=== PATIENT | male | born 1950 | race Caucasian/White ===

== ENCOUNTER → 2019-10-19 10:21 | Outpatient (BNVA) | payer MEDICARE, OTHER, SELFPAY | PROVIDERS: Family Provider Internal Medicine; PCP Internal Medicine; Visit Provider Family Medicine | DX: R09.81 Nasal congestion (principal); R52 Pain, unspecified; J10.1 Influenza due to other identified influenza virus with other respiratory manifestations | CPT/HCPCS: 87804 ==

== ENCOUNTER 2020-07-03 14:35 | Emergency (ER) | payer MEDICARE, OTHER, SELFPAY ==
[2020-07-03] VITALS (8 sets, daily range): BP systolic 93–157; BP diastolic 53–88; PULSE 75–99; RESP 16–24; TEMP 37.7–38.8; O2SAT 91–96; BMI 35.3
--- NOTE | 2020-07-03 14:55 | XR_ITS ---
WS: [id number] PORTABLE CHEST HISTORY: sob COMPARISON: None available. Hyperinflated lungs. Scattered bilateral peripheral opacifications and increasing opacifications at t he lung bases. No pleural effusion or pneumothorax. Cardiac size: Normal. Mediastinum/Aorta: Normal mediastinum. Prior RIGHT rotator cuff repair. Prior anterior cervical fusion. XR/XR chest 1V portable [id number] IMPRESSION: Bilateral pulmonary opacifications. Consistent with pneumonia. Correlate for po ssible Covid 19.
--- NOTE | 2020-07-03 14:56 | ECG_ITS ---
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 Measurements Intervals [place] Rate: 99 P: 20 MD: 166 QRS: -26 QRSD: 90 T: 62 QT: 365 QTc: 470 Interpretive Statements SINUS RHYTHM POSSIBLE LEFT ATRIAL ENLARGEMENT [-0.1mV P WAVE IN V1/V2] BORDERLINE LEFT AXIS DEVIATION [QRS AXIS < -20] ST DEVIATION AND MODERATE T-WAVE ABNORMALITY, CONSIDER LATERAL ISCHEMIA [-0.1+ mV T WAVE IN I/aVL/V5/V6] No previous ECG available for comparison Electronically Signed On 07-03-2020 21:40:36 ROCK DUSTER by Glo Mccall M.D. [id number]
--- NOTE | 2020-07-03 14:57 | W.ED.COVID ---
Documented by User: MEGHANA Deal 07/04/20 07:25 HPI - COVID General: Chief Complaint: COVID symptoms Stated Complaint: COVID, SOB, CAN'T SLEEP, WEAK Time Seen by Provider: 07/03/20 14:55 Triage information: Has fever, cough or shortness of breath. Exposure to COVID + person last 14 days History of Present Illness: HPI Narrative: Patient is a 69-year-old male comes to the ED with shortness of breath and weakness. Denies any COPD, asthma, previous [place], A. fib or heart failure. Patient tested positive for COVID-19 on June 27. He says for the past couple days he is having trouble sleeping and says he has increased shortness of breath and chest pain on exertion. Chest pain with exertion has been going for the last 6 days. His chest pain and shortness of breath improves once he rests. He describes the chest pain is centrally located and feels like a burning pain. He currently rates his chest pain a 6 out of 10. He endorses having a fever, body aches, dry cough and nasal drainage and congestion. Patient has not taken any medication for his fevers today. COVID 19 common symptoms: positive fever(s), non-productive cough, dyspnea, fatigue, body aches and nasal congestion; negative chills, productive cough, headache(s), throat pain, nausea, vomiting or diarrhea COVID 19 other sytmptoms: positive chest pain COVID Results: No Data to Display Review of Systems Const: Reports: fever(s), body aches, change in appetite (decreased), fatigue and change in sleep pattern (poor sleep due to cough); Denies: chills Eyes: Denies: change in vision or eye discomfort ENMT: Reports: nasal discharge and nasal congestion; Denies: throat pain or odynophagia Card: Reports: chest pain; Denies: palpitations, edema, swelling of feet/ankles, dyspnea on exertion or orthopnea Resp: Reports: dyspnea and non-productive cough; Denies: productive cough GI: Denies: abdominal pain, nausea, vomiting, diarrhea, constipation or hematochezia : Denies: flank pain, difficulty urinating, dysuria or hematuria Musc: Denies: neck pain, back pain or extremity swelling Skin/Breast: Denies: rash or new lesions Neuro: Denies: headache(s), numbness in extremities or weakness in extremities PFSH ED PFSH: Social History Smoking and tobacco status: former smoker Physical Exam Const: COMMON NORMALS: patient oriented x3 and alert GENERAL APPEARANCE: cooperative and comfortable HENMT: COMMON NORMALS: normocephalic HEAD & SCALP: normocephalic MOUTH: moist mucous membranes abnormal Details: parched THROAT: posterior oropharynx normal and uvula midline Eye: COMMON NORMALS: Equal, round and reactive pupils present PUPIL: Yes Equal, round and reactive pupils present Neck/C-Spine: COMMON NORMALS: supple GENERAL: Yes normal visual inspection Resp: COMMON NORMALS: normal respiratory effort, No retractions and No use of accessory muscles EFFORT & INSPECTION: Yes able to speak in complete sentences and Yes tachypneic AUSCULTATION: crackles Laterality: bilateral (Lung bases) and no wheezes Cardio: COMMON NORMALS: regular rate, regular rhythm, S1 normal heart sound present, S2 normal heart sound present, No gallops present (Cardio), No clicks present (Cardio), No murmurs present (Cardio) and Peripheral pulses 2+ throughout RATE: regular rate RHYTHM: regular rhythm HEART SOUNDS: S1 normal heart sound present and S2 normal heart sound present PERIPHERAL PULSES: Peripheral pulses 2+ throughout GI: COMMON NORMALS: Normal to inspection, nondistended, normoactive bowel sounds present, Soft to palpation, non-tender and no masses PALPATION: Yes Soft to palpation : COMMON NORMALS: Yes no CVA tenderness BLADDER/KIDNEY EXAM: Yes no CVA tenderness Back/Pelvis: COMMON NORMALS: no CVA tenderness Extremity: COMMON NORMALS: normal to inspection and no pedal edema Neuro: COMMON NORMALS: patient oriented x3 and moves all extremities SENSORIUM/ORIENTATION: Yes alert Skin: GENERAL SKIN EXAM: dry skin Course Vital Signs: Vital signs: Vital Signs Temperature 99.9 F H 07/03/20 17:38 Pulse Rate 75 07/03/20 19:26 Respiratory Rate 17 07/03/20 19:26 Blood Pressure 110/66 07/03/20 19:26 Pulse Oximetry 96 07/03/20 19:26 MDM - COVID Lab Data: Labs: Lab Results 07/03/20 07/03/20 07/03/20 Range/Units 15:42 15:42 15:42 WBC 6.0 (4.0-10.0) 10^3/ uL RBC 4.23 (4.1-5.3) 10^6/u L Hgb 13.3 (11.7-16.6) g/dL Hct 40.5 L (42.0-52.0) % MCV 95.7 H (80-94) fL MCH 31.4 (28.0-34.0) pg MCHC 32.8 (30.0-36.0) g/dL RDW 11.9 L (12.1-15.1) % Plt Count 200 (130-400) 10^3/c mm MPV 10.9 H (7.4-10.4) fL Neut % (Auto) 76.1 % Lymph % (Auto) 13.3 % Canadian % (Auto) 10.1 % Eos % (Auto) 0.0 % Baso % (Auto) 0.2 % Neut # (Auto) 4.58 (1.8-7.7) 10^3/u L Lymph # (Auto) 0.8 (0.8-4.8) 10^3/u L [place] # (Auto) 0.6 (0.2-0.9) 10^3/u L Eos # (Auto) 0.0 (0.0-0.8) 10^3/u L Baso # (Auto) 0.0 (0.0-0.1) 10^3/u L Nucleated RBC % (a uto) 0 % Nucleated RBCs # 0.0 /100WBC Sodium 139 (136-145) mmol/L Potassium 3.9 (3.5-5.1) mmol/L Chloride 100 (98-107) mmol/L Carbon Dioxide 20 L (22-29) mmol/L Anion Gap 22.9 H (5-19) BUN 20 (8-23) mg/dL Creatinine 1.0 (0.7-1.2) mg/dL GFR Calculation 74.3 L (90-130) mL/min Glucose 85 (65-115) mg/dL Calculated Osmolal ity 290 (285-295) mOsm/k g Lactic Acid 1.4 (0.5-2.2) mmol/L Calcium 9.0 (8.5-10.5) mg/dL Total Bilirubin 0.6 (0.15-1.2) mg/dL AST 55 H (0-40) U/L ALT 54 H (0-41) U/L Alkaline Phosphata se 76 (40-130) IU/L Troponin T Baselin e (0-15) ng/L Troponin T 120 Min [place] (0-15) ng/L Delta Troponin T (0-10) ABS# NT-Pro-B Natriuret Pep 84 (0-125) pg/mL Total Protein 7.3 (6.6-8.7) g/dL Albumin 4.0 (3.5-5.2) g/dL Globulin 3.3 (1.3-4.6) g/dL Lipase 41 (13-60) U/L Procalcitonin 0.16 (0-0.5) ng/mL 07/03/20 07/03/20 Range/Units 15:42 17:36 WBC (4.0-10.0) 10^3/ uL RBC (4.1-5.3) 10^6/u L Hgb (11.7-16.6) g/dL Hct (42.0-52.0) % MCV (80-94) fL MCH (28.0-34.0) pg MCHC (30.0-36.0) g/dL RDW (12.1-15.1) % Plt Count (130-400) 10^3/c mm MPV (7.4-10.4) fL Neut % (Auto) % Lymph % (Auto) % Canadian % (Auto) % Eos % (Auto) % Baso % (Auto) % Neut # (Auto) (1.8-7.7) 10^3/u L Lymph # (Auto) (0.8-4.8) 10^3/u L Canadian # (Auto) (0.2-0.9) 10^3/u L Eos # (Auto) (0.0-0.8) 10^3/u L Baso # (Auto) (0.0-0.1) 10^3/u L Nucleated RBC % (a uto) % Nucleated RBCs # /100WBC Sodium (136-145) mmol/L Potassium (3.5-5.1) mmol/L Chloride (98-107) mmol/L Carbon Dioxide (22-29) mmol/L Anion Gap (5-19) BUN (8-23) mg/dL Creatinine (0.7-1.2) mg/dL GFR Calculation (90-130) mL/min Glucose (65-115) mg/dL Calculated Osmolal ity (285-295) mOsm/k g Lactic Acid (0.5-2.2) mmol/L Calcium (8.5-10.5) mg/dL Total Bilirubin (0.15-1.2) mg/dL AST (0-40) U/L ALT (0-41) U/L Alkaline Phosphata se (40-130) IU/L Troponin T Baselin e 12 (0-15) ng/L Troponin T 120 Min [place] 12.44 (0-15) ng/L Delta Troponin T 0.44 (0-10) ABS# NT-Pro-B Natriuret Pep (0-125) pg/mL Total Protein (6.6-8.7) g/dL Albumin (3.5-5.2) g/dL Globulin (1.3-4.6) g/dL Lipase (13-60) U/L Procalcitonin (0-0.5) ng/mL Imaging Data: CXR: Attestation: I personally reviewed and interpreted this imaging study as follows: Radiologist's impression: [address] [address] XRay Report Signed Patient: Ted Hammond Unit #: [id number] : 1950 Age/Sex: 69 / M ADM Date: 07/03/20 Loc: ER Room/Bed: Attending Dr: Ordering Provider/Ordering MD: Srinath Benitez Date of Service: 07/03/20 Procedure(s): XR chest 1V portable [id number] Accession Number(s): [id number] Report Number: [id number] WS: [id number] PORTABLE CHEST HISTORY: sob COMPARISON: None available. Hyperinflated lungs. Scattered bilateral peripheral opacifications and increasing opacifications at the lung bases. No pleural effusion or pneumothorax. Cardiac size: Normal. Mediastinum/Aorta: Normal mediastinum. Prior RIGHT rotator cuff repair. Prior anterior cervical fusion. XR/XR chest 1V portable [id number] IMPRESSION: Bilateral pulmonary opacifications. Consistent with pneumonia. Correlate for possible Covid 19. Dictated By: Brigitte Griffin DO Signed By: Brigitte Griffin DO Signed Date/Time: 07/03/201527 DD/ 26 EKG Data: EKG 1: Attestation: I personally reviewed and interpreted this EKG as follows: EKG interpretation date: 07/03/20 Interpretation: Normal sinus rhythm, 99 bpm, no ST segment elevation or depression seen. COVID Results: No Data to Display Discharge Plan Discharge Patient Disposition: Home Clinical Impression: COVID-19, Acute bronchitis due to 2019 novel coronavirus Condition: Stable Prescriptions: New Ventolin HFA 90 mcg/actuation HFA aerosol inhaler 2 puff INHALATION Q4H PRN (Reason: shortness of breath or wheezing) Qty: 18 RF: 0 benzonatate 200 mg capsule 200 mg PO TID PRN (Reason: cough) Qty: 20 RF: 0 Continued doxycycline hyclate 100 mg capsule 100 mg PO BID RF: 0 No Action losartan 50 mg tablet 50 mg PO BID RF: 0 benzonatate 200 mg capsule 200 mg PO TID RF: 0 amlodipine 5 mg tablet 5 mg PO DAILY RF: 0 pravastatin 20 mg tablet 20 mg PO DAILY RF: 0 zolpidem 5 mg tablet 5 mg PO BEDTIME RF: 0 desmopressin 0.1 mg tablet 0.1 mg PO DAILY RF: 0 Centrum Silver Men 300-600-300 mcg Tablet 1 tab PO DAILY RF: 0 Vitamin C 1 mg PO DAILY RF: 0 Discharge Orders: Discharge Order (Routine); Ordered 07/03/20 Ordered By: Lashonda Ann Referrals: Ashok Hale MD [Primary Care Provider] - Discharge Diet: Advance as tolerated Discharge Activity: Limit activity as instructed Patient Instructions: Acute Bronchitis (ED), Viral Syndrome (ED) Activity Restrictions/Additional Instructions: Home oxygen monitoring device has been provided, please check your oxygen level to ensure it maintains between 91 to 100%. If oxygen level falls below 90%, you will need to return to the emergency department. Return to the emergency department if you develop increased shortness of breath, inability to catch your breath, nausea vomiting, or other concerning symptoms You will need to stay home and push fluids, fever will require your body more hydration. Follow-up with your primary care provider in 2 to 3 days, telemedicine visit will be available, it is important for follow-up to ensure you are doing better. Take doxycycline until all gone, take prednisone and antibiotics with food. Remain in quarantine as directed by the [facility]. Sign Out Sign Out Data: Patient Sign Out occurred on 07/03/20 at 17:26. Patient's care was discussed, and care was transferred from MEGHANA Deal to JENNIFFER Dyson. Sign Out Comment: Waiting on some remaining labs come back. Check O2 status when patient is up and moving. Talk with Dr. Esteban about discharge of patient. Send home with antibiotic and steroid. JRP Last updated by Srinath Benitez PA at 07/03/20 17:13 Coding Level of Care Code ED Art Department Head for Chg Fwd Exam Comprehensive Documented by User: JENNIFFER Dyson 07/03/20 19:30 HPI - COVID General: Chief Complaint: COVID symptoms Stated Complaint: COVID, SOB, CAN'T SLEEP, WEAK Time Seen by Provider: 07/03/20 14:55 COVID Results: No Data to Display PFS ED PFSH: Social History Smoking and tobacco status: former smoker Course ED course: 69-year-old male patient presents to the emergency department with COVID-19 symptoms, shortness of breath and chest discomfort due to congestion. Cardiac enzymes, troponin negative, EKG without pericarditis findings, patient states ready to go home, oxygen saturation remained greater than 92% here in the ED. Did not meet qualification for home oxygen. Currently receiving doxycycline and prednisone from urgent care visit last week. Advised to continue medication, he is requesting albuterol and something for cough, prescribed albuterol inhaler with Tesdarryl Weiner. Long discussion regarding COVID-19 and symptoms of shortness of breath with chest discomfort. He reports able to care for himself at home and does not feel need for oxygen supplementation at this time. Is comfortable monitoring his oxygen at home with recommendation to return to the emergency department if his oxygen saturation falls below 91%. Agrees to follow-up with his primary care provider in 2 to 3 days via telemedicine. He denies nausea vomiting. Tolerating oral fluids without difficulty. Vital Signs: Vital signs: Vital Signs Temperature 99.9 F H 07/03/20 17:38 Pulse Rate 75 07/03/20 19:26 Respiratory Rate 17 07/03/20 19:26 Blood Pressure 110/66 07/03/20 19:26 Pulse Oximetry 96 07/03/20 19:26 MDM - COVID Lab Data: Labs: Lab Results 07/03/20 07/03/20 07/03/20 Range/Units 15:42 15:42 15:42 WBC 6.0 (4.0-10.0) 10^3/ uL RBC 4.23 (4.1-5.3) 10^6/u L Hgb 13.3 (11.7-16.6) g/dL Hct 40.5 L (42.0-52.0) % MCV 95.7 H (80-94) fL MCH 31.4 (28.0-34.0) pg MCHC 32.8 (30.0-36.0) g/dL RDW 11.9 L (12.1-15.1) % Plt Count 200 (130-400) 10^3/c mm MPV 10.9 H (7.4-10.4) fL Neut % (Auto) 76.1 % Lymph % (Auto) 13.3 % Canadian % (Auto) 10.1 % Eos % (Auto) 0.0 % Baso % (Auto) 0.2 % Neut # (Auto) 4.58 (1.8-7.7) 10^3/u L Lymph # (Auto) 0.8 (0.8-4.8) 10^3/u L Canadian # (Auto) 0.6 (0.2-0.9) 10^3/u L Eos # (Auto) 0.0 (0.0-0.8) 10^3/u L Baso # (Auto) 0.0 (0.0-0.1) 10^3/u L Nucleated RBC % (a uto) 0 % Nucleated RBCs # 0.0 /100WBC Sodium 139 (136-145) mmol/L Potassium 3.9 (3.5-5.1) mmol/L Chloride 100 (98-107) mmol/L Carbon Dioxide 20 L (22-29) mmol/L Anion Gap 22.9 H (5-19) BUN 20 (8-23) mg/dL Creatinine 1.0 (0.7-1.2) mg/dL GFR Calculation 74.3 L (90-130) mL/min Glucose 85 (65-115) mg/dL Calculated Osmolal ity 290 (285-295) mOsm/k g Lactic Acid 1.4 (0.5-2.2) mmol/L Calcium 9.0 (8.5-10.5) mg/dL Total Bilirubin 0.6 (0.15-1.2) mg/dL AST 55 H (0-40) U/L ALT 54 H (0-41) U/L Alkaline Phosphata se 76 (40-130) IU/L Troponin T Baselin e (0-15) ng/L Troponin T 120 Min [place] (0-15) ng/L Delta Troponin T (0-10) ABS# NT-Pro-B Natriuret Pep 84 (0-125) pg/mL Total Protein 7.3 (6.6-8.7) g/dL Albumin 4.0 (3.5-5.2) g/dL Globulin 3.3 (1.3-4.6) g/dL Lipase 41 (13-60) U/L Procalcitonin 0.16 (0-0.5) ng/mL 07/03/20 07/03/20 Range/Units 15:42 17:36 WBC (4.0-10.0) 10^3/ uL RBC (4.1-5.3) 10^6/u L Hgb (11.7-16.6) g/dL Hct (42.0-52.0) % MCV (80-94) fL MCH (28.0-34.0) pg MCHC (30.0-36.0) g/dL RDW (12.1-15.1) % Plt Count (130-400) 10^3/c mm MPV (7.4-10.4) fL Neut % (Auto) % Lymph % (Auto) % Canadian % (Auto) % Eos % (Auto) % Baso % (Auto) % Neut # (Auto) (1.8-7.7) 10^3/u L Lymph # (Auto) (0.8-4.8) 10^3/u L Canadian # (Auto) (0.2-0.9) 10^3/u L Eos # (Auto) (0.0-0.8) 10^3/u L Baso # (Auto) (0.0-0.1) 10^3/u L Nucleated RBC % (a uto) % Nucleated RBCs # /100WBC Sodium (136-145) mmol/L Potassium (3.5-5.1) mmol/L Chloride (98-107) mmol/L Carbon Dioxide (22-29) mmol/L Anion Gap (5-19) BUN (8-23) mg/dL Creatinine (0.7-1.2) mg/dL GFR Calculation (90-130) mL/min Glucose (65-115) mg/dL Calculated Osmolal ity (285-295) mOsm/k g Lactic Acid (0.5-2.2) mmol/L Calcium (8.5-10.5) mg/dL Total Bilirubin (0.15-1.2) mg/dL AST (0-40) U/L ALT (0-41) U/L Alkaline Phosphata se (40-130) IU/L Troponin T Baselin e 12 (0-15) ng/L Troponin T 120 Min [place] 12.44 (0-15) ng/L Delta Troponin T 0.44 (0-10) ABS# NT-Pro-B Natriuret Pep (0-125) pg/mL Total Protein (6.6-8.7) g/dL Albumin (3.5-5.2) g/dL Globulin (1.3-4.6) g/dL Lipase (13-60) U/L Procalcitonin (0-0.5) ng/mL COVID Results: No Data to Display Discharge Plan Discharge Patient Disposition: Home Clinical Impression: COVID-19, Acute bronchitis due to 2019 novel coronavirus Condition: Stable Prescriptions: New Ventolin HFA 90 mcg/actuation HFA aerosol inhaler 2 puff INHALATION Q4H PRN (Reason: shortness of breath or wheezing) Qty: 18 RF: 0 benzonatate 200 mg capsule 200 mg PO TID PRN (Reason: cough) Qty: 20 RF: 0 Continued doxycycline hyclate 100 mg capsule 100 mg PO BID RF: 0 No Action losartan 50 mg tablet 50 mg PO BID RF: 0 benzonatate 200 mg capsule 200 mg PO TID RF: 0 amlodipine 5 mg tablet 5 mg PO DAILY RF: 0 pravastatin 20 mg tablet 20 mg PO DAILY RF: 0 zolpidem 5 mg tablet 5 mg PO BEDTIME RF: 0 desmopressin 0.1 mg tablet 0.1 mg PO DAILY RF: 0 Centrum Silver Men 300-600-300 mcg Tablet 1 tab PO DAILY RF: 0 Vitamin C 1 mg PO DAILY RF: 0 Discharge Orders: Discharge Order (Routine); Ordered 07/03/20 Ordered By: Lashonda Ann Referrals: Ashok Hale MD [Primary Care Provider] - Discharge Diet: Advance as tolerated Discharge Activity: Limit activity as instructed Patient Instructions: Acute Bronchitis (ED), Viral Syndrome (ED) Activity Restrictions/Additional Instructions: Home oxygen monitoring device has been provided, please check your oxygen level to ensure it maintains between 91 to 100%. If oxygen level falls below 90%, you will need to return to the emergency department. Return to the emergency department if you develop increased shortness of breath, inability to catch your breath, nausea vomiting, or other concerning symptoms You will need to stay home and push fluids, fever will require your body more hydration. Follow-up with your primary care provider in 2 to 3 days, telemedicine visit will be available, it is important for follow-up to ensure you are doing better. Take doxycycline until all gone, take prednisone and antibiotics with food. Remain in quarantine as directed by the [facility]. Sign Out Sign Out Data: Patient Sign Out occurred on 07/03/20 at 17:26. Patient's care was discussed, and care was transferred from MEGHANA Deal to JENNIFFER Dyson. Sign Out Comment: Waiting on some remaining labs come back. Check O2 status when patient is up and moving. Talk with Dr. Esteban about discharge of patient. Send home with antibiotic and steroid. [email or web address] Last updated by Srinath Benitez PA at 07/03/20 17:13 Coding Level of Care Code ED Art Department Head for Chg Fwd Exam Comprehensive
[2020-07-03 15:56] LABS: Basophils % 0.2 %; Hematocrit 40.5 % (42.0-52.0); Hemoglobin 13.3 g/dL (11.7-16.6); Lymphocytes # 0.8 10^3/uL (0.8-4.8); Lymphocytes % 13.3 %; Mean Corpuscular HGB Conc 32.8 g/dL (30.0-36.0); Mean Corpuscular Hemoglobin 31.4 pg (28.0-34.0); Mean Corpuscular Volume 95.7 fL (80-94); Mean Platelet Volume 10.9 fL (7.4-10.4); Monocytes # 0.6 10^3/uL (0.2-0.9); Monocytes % 10.1 %; Neutrophils # 4.58 10^3/uL (1.8-7.7); Neutrophils % 76.1 %; Nucleated Red Blood Cells % 0 %; Platelet Count 200 10^3/cmm (130-400); Red Blood Count 4.23 10^6/uL (4.1-5.3); Red Cell Distribution Width 11.9 % (12.1-15.1)
[2020-07-03] MEDS: acetaminophen 500 mg Tablet 1000 MG PO (16:00)
[2020-07-03] MEDS: aspirin 81 mg Chew Tablet 324 MG PO (16:01)
[2020-07-03] MEDS: sodium chloride 0.9% 500 ML IV (16:01)
[2020-07-03] MEDS: dexamethasone 4 mg/mL INJ 10 MG IVP (16:32)
[2020-07-03] MEDS: azithromycin 500 MG in sodium chloride 0.9% 250 ML 250 MG IV (16:32)
[2020-07-03 16:43] LABS: NT Pro B Type Natriuretic Pept 84 pg/mL (0-125); Procalcitonin 0.16 ng/mL (0-0.5)
[2020-07-03 16:52] LABS: Lactic Sepsis W/Reflex 1.4 mmol/L (0.5-2.2); Troponin(5th) Baseline 12 ng/L (0-15)
--- NOTE | 2020-07-03 16:56 | ECG_ITS ---
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 Measurements Intervals [place] Rate: 95 P: 17 DC: 174 QRS: -10 QRSD: 84 T: 46 QT: 374 QTc: 471 Interpretive Statements SINUS RHYTHM NONSPECIFIC ST & T-WAVE ABNORMALITY Compared to ECG 07/03/2020 15:24:13 Possible ischemia no longer present T-wave abnormality still present Electronically Signed On 07-03-2020 21:49:45 PHOTOGRAPH[employer] MODEL by Glo Mccall M.D. [id number]
[2020-07-03 17:07] LABS: Alanine Aminotransferase 54 U/L (0-41); Alkaline Phosphatase 76 IU/L (40-130); Anion Gap 22.9 (5-19); Aspartate Amino Transferase 55 U/L (0-40); Blood Urea Nitrogen 20 mg/dL (8-23); Carbon Dioxide 20 mmol/L (22-29); Chloride 100 mmol/L (98-107); Globulin 3.3 g/dL (1.3-4.6); Glomerular Filtration Rate 74.3 mL/min (90-130); Glucose 85 mg/dL (65-115); Lipase 41 U/L (13-60); Osmolality Calculated 290 mOsm/kg (285-295); Potassium 3.9 mmol/L (3.5-5.1); Sodium 139 mmol/L (136-145); Total Bilirubin 0.6 mg/dL (0.15-1.2); Total Protein 7.3 g/dL (6.6-8.7)
[2020-07-03 18:21] LABS: Troponin 5 2HR 12.44 ng/L (0-15); Troponin 5 2HR Delta 0.44 ABS# (0-10)
--- NOTE | 2020-07-04 05:23 | PC.SOCIAL ---
Did not qualify for home O2, O2 monitor sent home with him.
== END 2020-07-03 19:27 | disposition home or self-care (01) ==
PROVIDERS: Physician Assistant; Emergency Provider Nurse Practitioner Family; PCP Internal Medicine
DX: U07.1 COVID-19 (principal); J20.8 Acute bronchitis due to other specified organisms; Z87.891 Personal history of nicotine dependence; R07.9 Chest pain, unspecified
CPT/HCPCS: 12345; 71045; 80053; 83605; 83690; 83880; 84145; 84484; 85025; 87040; 93005; 96365; 96375; 99282; 99284; J0456; J1100; J7040; J7050

== ENCOUNTER → 2022-06-22 10:20 | Outpatient (BNVA) | payer MEDICARE, OTHER, SELFPAY | PROVIDERS: PCP Internal Medicine; Visit Provider Family Medicine | DX: J06.9 Acute upper respiratory infection, unspecified (principal) | CPT/HCPCS: 87071; 87880 ==